=== PATIENT | female | born 1965 | race Two or more races ===

== ENCOUNTER 2024-12-21 19:12 | Emergency (ER) | payer OTHER ==
[~2024-12-21] VITALS: Ht 165.1 cm; Wt 128.8 kg
[2024-12-21] MEDS ORDERED: LIPOFEN150 MG (19:33)
[2024-12-21] MEDS ORDERED: WELLBUTRIN XL150 M1 (19:33)
[2024-12-21] MEDS ORDERED: DULOXETINE HCL40 MG (19:34)
[2024-12-21] MEDS ORDERED: TENEX (19:34)
[2024-12-21] MEDS ORDERED: AVAPRO300 MG (19:34)
[2024-12-21] MEDS ORDERED: NORVASC10 MG (19:34)
[2024-12-21] MEDS ORDERED: [UNRECOGNIZED DRUG - OTHER] (19:34)
[2024-12-21] MEDS ORDERED: KETOROLAC TROMETHAMINE 60 MG VIAL IM ONE (20:15)
[2024-12-21] MEDS ORDERED: ORPHENADRINE CITRATE 30 MG/ML AMPUL IM ONE (20:15)
[2024-12-21] MEDS ORDERED: ORPHENADRINE CITRATE 30 MG/ML AMPUL ONE (20:27)
[2024-12-21] MEDS ORDERED: KETOROLAC TROMETHAMINE 30 MG VIAL ONE (20:27)
[2024-12-21] MEDS ORDERED: TRAMADOL HCL 50 MG TABLET PO STA (22:03)
== END 2024-12-21 22:13 ==
LOC: ER 22:09
DX: M25.512 Pain in left shoulder (principal); I10 Essential (primary) hypertension; Z88.0 Allergy status to penicillin
CPT/HCPCS: 73030; 96372; 99283; J1885; J2360